=== PATIENT | female | born 1960 | race Caucasian/White ===

== ENCOUNTER 2016-12-08 15:34 | Emergency (ER) | payer MEDICAID ==
[~2016-12-08] VITALS: Ht 175.3 cm; Wt 80.1 kg
[2016-12-08 15:47] VITALS: BP 119/79
== END 2016-12-08 17:34 | disposition home or self-care (01) ==
LOC: ED 17:00
DX: S31.010D Laceration without foreign body of lower back and pelvis without penetration into retroperitoneum, subsequent encounter (principal)
CPT/HCPCS: 99283